=== PATIENT | male | born 1975 | race Caucasian/White ===

== ENCOUNTER → 2020-08-20 16:21 | Outpatient (CLI) | payer OTHER, SELFPAY ==
--- NOTE | 2020-08-20 16:24 | DI.RAD.S_ITS ---
PROCEDURE: XR CHEST 2V INDICATIONS: chest discomfort TECHNIQUE: 2 views of the chest were acquired. COMPARISON: None. FINDINGS: Surgical changes and devices: None. Lungs and pleura: Lungs are clear. No pleural effusions or pneumothorax. Mediastinum: Mediastinal contours are normal. Heart size is normal. Bones and chest wall: No suspicious bony abnormalities. Soft tissues appear unremarkable. IMPRESSION: Normal chest plain films. Dictated by: Florin Shaver M.D. on 08/20/2020 at 15:39 Approved by: Florin Shaver M.D. on 08/20/2020 at 15:40
== END ==
PROVIDERS: Referring Provider Physician Assistant; Visit Provider Physician Assistant
DX: R07.89 Other chest pain (principal); R07.81 Pleurodynia
CPT/HCPCS: 71046

== ENCOUNTER → 2020-09-02 11:09 | Outpatient (CLI) | payer OTHER, SELFPAY ==
--- NOTE | 2020-09-02 11:13 | DI.RAD.S_ITS ---
PROCEDURE: XR ABDOMEN MIN 2V INDICATIONS: abdomen pain TECHNIQUE: 2 views of the abdomen were acquired. COMPARISON: None. FINDINGS: Surgical changes and devices: None. Bowel: No pneumoperitoneum. The bowel gas pattern is normal. Moderate stool. Soft tissues: No masses; visualized solid organ contours appear normal in size. No suspicious abdominal calcifications. Bones: No suspicious bony abnormalities. IMPRESSION: Moderate stool. No specific evidence of bowel obstruction seen at this time although if the patient's symptoms do not improve, continued surveillance with abdominal series radiographs could be performed. Dictated by: Benny Dietrich M.D. on 09/02/2020 at 16:11 Approved by: Benny Dietrich M.D. on 09/02/2020 at 16:12
[2020-09-02 13:05] LABS: Add Manual Diff / Slide Review NO; Basophils Absolute Auto 100 /uL (0-100); Basophils Percent Auto 1.1 % (0-2); Eosinophils Absolute Auto 100 /uL (0-450); Eosinophils Percent Auto 1.5 % (2-4); Hematocrit 40.1 % (41-53); Hemoglobin 13.1 g/dL (13.5-17.5); Lymphocytes Absolute Auto 2000 /uL (1100-4500); Lymphocytes Percent Auto 25.9 % (25-40); Mean Corpuscular HGB Conc 32.7 % (30-36); Mean Corpuscular Volume 88.9 fL (80-100); Monocytes Absolute Auto 900 /uL (0-900); Neutrophils Absolute Auto 4600 /uL (1500-7000); Neutrophils Percent Auto 59.5 % (50-75); Platelet Count 242 X10^3/uL (150-400); Red Blood Cell Count 4.51 X10^6/uL (4.5-5.9); Red Cell Distribution Width 13.2 % (11.6-14.8); White Blood Cell Count 7.7 X10^3/uL (4.5-11.0)
[2020-09-02 13:37] LABS: Alanine Aminotransferase 65 IU/L (<50); Albumin 4.5 g/dL (3.5-5.0); Albumin Globulin Ratio 1.5 (1.0-2.8); Alkaline Phosphatase 160 U/L (38-126); Amylase 74 U/L (30-110); Aspartate Aminotransferase 37 IU/L (17-59); BUN Creatinine Ratio 14.8 (6-22); Bilirubin Total 0.5 mg/dL (0.2-1.3); Blood Urea Nitrogen 16 mg/dL (9-20); C-Reactive Protein Quant < 0.5 mg/dL (<1.0); Calcium 9.8 mg/dL (8.4-10.2); Carbon Dioxide 27 mmol/L (22-32); Chloride 107 mmol/L (98-107); Estimated Glomerular Filt Rate > 60.0 mL/min (>60); Glucose 100 mg/dL (70-100); HEMOLYSIS < 15 (0-50); Lipase 231 U/L (23-300); Potassium 4.9 mmol/L (3.4-5.1); Sodium 142 mmol/L (137-145); Total Protein 7.5 g/dL (6.3-8.2)
[2020-09-02 13:40] LABS: Erythrocyte Sedimentation Rate 12 MM/HR (0-15)
[2020-09-02 16:38] LABS: TSH w/ Reflex to FT4 3.12 uIU/mL (0.47-4.68)
[2020-09-03 10:29] LABS: Valproic Acid (Depakene) Total 74 ug/mL (50-100)
== END ==
PROVIDERS: PCP Internal Medicine; Referring Provider Internal Medicine; Visit Provider Internal Medicine
DX: R10.9 Unspecified abdominal pain (principal); M54.9 Dorsalgia, unspecified; I10 Essential (primary) hypertension; F31.9 Bipolar disorder, unspecified; F43.10 Post-traumatic stress disorder, unspecified; G89.29 Other chronic pain
CPT/HCPCS: 36415; 74019; 80053; 80164; 82150; 83690; 84443; 85025; 85651; 86140

== ENCOUNTER → 2020-12-03 12:39 | Outpatient (CLI) | payer OTHER, MEDICAID, SELFPAY ==
[2020-12-03 13:32] LABS: HDL Cholesterol 45 mg/dL (40-60)
[2020-12-03 13:47] LABS: Cholesterol 347 mg/dL (140-199); Triglycerides 838 mg/dL (35-150)
== END ==
PROVIDERS: PCP Internal Medicine; Referring Provider Internal Medicine; Visit Provider Internal Medicine
DX: E78.5 Hyperlipidemia, unspecified (principal); I10 Essential (primary) hypertension
CPT/HCPCS: 36415; 80061